=== PATIENT | female | born 2000 | race Caucasian/White ===

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

== ENCOUNTER 2020-08-20 22:15 | Emergency (ER) | payer OTHER, SELFPAY ==
[~2020-08-20] VITALS: Ht 162.6 cm; Wt 70.8 kg
[2020-08-20 22:31] VITALS: BP 117/73
--- NOTE | 2020-08-20 22:31 | NUR ---
TO BED AMBULATORY
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
--- NOTE | 2020-08-20 23:43 | NUR ---
Dr. Romano examining patient.
[2020-08-20 23:55] VITALS: BP 117/73
--- NOTE | 2020-08-20 23:55 | NUR ---
Patient discharged with v/s stable. Written and verbal after care instructions given and explained. Patient verbalized understanding. Ambulatory with steady gait. All questions addressed prior to discharge. Advised to follow up with PMD.
== END 2020-08-20 23:55 | disposition home or self-care (01) ==
LOC: MED 22:15
DX: L24.1 Irritant contact dermatitis due to oils and greases (principal); J45.909 Unspecified asthma, uncomplicated
CPT/HCPCS: 99281

== ENCOUNTER 2021-07-28 07:45 | Emergency (ER) | payer OTHER ==
[~2021-07-28] VITALS: Ht 162.6 cm; Wt 65.8 kg
[2021-07-28 07:51] VITALS: BP 116/73
--- NOTE | 2021-07-28 08:36 | NUR ---
20 Y/O FEMALE C/O HAVING A WITNESSED SEIZURE THIS MORNING. PT STATES THE SEIZURE WAS APPROX.3-4 MINUTES LONG AND SHE WOKE UP DROOLING AND HAD A HEADACHE. PT DENIES LOC, N/V/D. PT STATES SHE HAD A SEIZURE APPROX.6 YEARS AGO. PT IS ALERT AND ORIENTED X4. BED IN LOWEST POSITION. SEIZURE PADS IN PLACE. PMH:SEIZURE, ASTHMA, ANXIETY, DEPRESSION MEDS:ALBUTEROL, ZOLOFT NKA
--- NOTE | 2021-07-28 09:01 | NUR ---
PT RESTING IN BED, NO APPARENT DISTRESS, EVEN AND UNLABORED BREATHING.
[2021-07-28 09:50] VITALS: BP 114/70
--- NOTE | 2021-07-28 09:50 | NUR ---
Dr. Zhang is reevaluating patient at bedside
== END 2021-07-28 08:38 | disposition home or self-care (01) ==
LOC: MED 07:45
DX: S09.90XA Unspecified injury of head, initial encounter (principal); R56.9 Unspecified convulsions; R42 Dizziness and giddiness; J45.909 Unspecified asthma, uncomplicated; F41.9 Anxiety disorder, unspecified; F32.9 Major depressive disorder, single episode, unspecified; X58.XXXA Exposure to other specified factors, initial encounter; Y93.89 Activity, other specified; Y92.89 Other specified places as the place of occurrence of the external cause; Y99.8 Other external cause status
CPT/HCPCS: 81025; 99282

== ENCOUNTER 2022-06-18 18:25 | Observation (INO) | payer OTHER ==
[~2022-06-18] VITALS: Ht 162.6 cm; Wt 79.4 kg
[2022-06-18] MEDS ORDERED: PNV91TAB8 PO (19:04)
[2022-06-18 19:34] VITALS: BP 106/67
== END 2022-06-18 20:48 | disposition home or self-care (01) ==
LOC: EEVIPCON 18:25 → MLD 18:25
PROVIDERS: ADMIT Obstetrics & Gynecology; ATTEND Obstetrics & Gynecology
DX: O26.892 Other specified pregnancy related conditions, second trimester (principal); R10.9 Unspecified abdominal pain; O99.342 Other mental disorders complicating pregnancy, second trimester; F41.9 Anxiety disorder, unspecified; O99.512 Diseases of the respiratory system complicating pregnancy, second trimester; J45.909 Unspecified asthma, uncomplicated; Z3A.21 21 weeks gestation of pregnancy; V89.2XXA Person injured in unspecified motor-vehicle accident, traffic, initial encounter; Y93.89 Activity, other specified; Y92.89 Other specified places as the place of occurrence of the external cause
CPT/HCPCS: 59025; 76805; G0378; Q0092

== ENCOUNTER 2022-09-17 02:10 | Observation (INO) | payer OTHER ==
[~2022-09-17] VITALS: Ht 162.6 cm; Wt 91.6 kg
[~2022-09-17 02:10] MED LIST: PNV91TAB8 PO
[2022-09-17 03:08] VITALS: BP 108/65
[2022-09-17] MEDS ORDERED: MORPHINE SULFATE 4 MG/ML SYR IVP SCH (03:20)
[2022-09-17 03:31] LABS: APPEARANCE,URINE CLEAR (CLEAR); BILIRUBIN,URINE NEGATIVE (NEGATIVE); BLOOD, URINE NEGATIVE (NEGATIVE); COLOR,URINE YELLOW (YELLOW); LEUKOCYTE ESTERASE ,URINE TRACE (NEGATIVE); NITRITE, URINE NEGATIVE (NEGATIVE); PH,URINE 6.5 (5.0-9.0); UGLUCOSE NEGATIVE (NEGATIVE)
[2022-09-17 03:39] LABS: RBC,URINE 0-5 /HPF (0-5)
[2022-09-17] MEDS ORDERED: cefTRIAXone 1,000 MG VIAL ONE (03:54)
[2022-09-17] MEDS: NACL 0.9% 1,000 ML IV SCH ×2 (04:15→09:09)
[2022-09-17] MEDS ORDERED: ONDANSETRON 4 MG/2 ML VIAL IVP PRN (09:05)
== END 2022-09-17 12:25 | disposition home or self-care (01) ==
LOC: MLD 02:10
PROVIDERS: ADMIT Obstetrics & Gynecology; ATTEND Obstetrics & Gynecology
DX: O26.893 Other specified pregnancy related conditions, third trimester (principal); R10.30 Lower abdominal pain, unspecified; Z3A.30 30 weeks gestation of pregnancy
CPT/HCPCS: 81001; 96361; 96365; 96375; G0378; J0696; J2405; J7060